=== PATIENT | male | born 1990 | race Caucasian/White ===

== ENCOUNTER 2017-05-12 22:03 | Emergency (ER) | payer OTHER ==
[2017-05-12 22:41] LABS: BASO % 0.2 % (0-6); EOS % 0.2 % (0-6); HEMATOCRIT 40.7 % (42.0-52.0); HEMOGLOBIN 13.9 gm/dl (14.0-18.0); LYMPH % 3.6 % (16-45); MEAN CELL VOLUME 92.7 fl (81-97); MEAN CORPUSCULAR HEMOGLOBIN 31.6 pg (27-33); MEAN CORPUSCULAR HGB CONC 34.2 g/dl (32-36); MEAN PLATELET VOLUME 10.3 fl (7.4-10.4); MONO % 5.9 % (0-9); PLATELET COUNT 186 K/uL (130-400); RED BLOOD COUNT 4.39 M/uL (4.40-5.70); RED CELL DISTRIBUTION WIDTH 12.8 % (11.5-14.5); WHITE BLOOD COUNT W/O DIFF 10.5 K/uL (4.2-12.2)
[2017-05-12] MEDS: KETOROLAC 30 MG/ML VIAL IVP ONE (22:45)
[2017-05-12] MEDS: 0.9 % SODIUM CHLORIDE 1,000 ML BAG IV ONE (22:48)
[2017-05-12 22:53] LABS: BLOOD UREA NITROGEN 17 mg/dL (6-20)
[2017-05-12 22:54] LABS: CREATININE 0.9 mg/dL (0.7-1.2); EST GLOMERULAR FILTRATION RATE > 60 mL/min
[2017-05-12 22:56] LABS: GLUCOSE,RANDOM 100 mg/dL (74-109)
[2017-05-12] MEDS: METHYLPREDNISOLONE PF 125MG/VIAL IVP ONE (23:59)
[2017-05-13] MEDS: IPRATROPIUM/ALBUTEROL (0.5MG/3MG) NEB INH ONE (00:21)
--- NOTE | 2017-05-13 00:36 | Emergency Department Record ---
History of Present Illness - General Chief Complaint: Difficulty Breathing Stated Complaint: LESLIE Time Seen by Provider: 05/12/17 22:24 Source: Patient Mode of Arrival: Ambulatory Limitations: No limitations - History of Present Illness Initial Comments: pt has a prod cough and feels like he is sob. he recently was on zithromax and levaquin for pneumonia MD Complaint: Cough, Shortness of breath Onset/Timin -: Hour(s) Severity: Moderate Consistency: Constant Improves With: Nothing Worsens With: Inspiration, Other Context: Recent illness, Recent URI Associated Symptoms: Chest pain, Cough, Pain with inspiration, Sputum production - Related Data Home Medications Medication Instructions Recorded Confirmed Last Taken Vitamin B Complex 1 each PO DAILY 05/12/17 05/12/17 Unknown Previous Rx's Medication Instructions Recorded Doxycycline Hyclate [Doxycycline] 100 mg PO BID #14 tab 05/13/17 Allergies Allergy/AdvReac Type Severity Reaction Status Date / Time Penicillins Allergy HIVES Verified 05/12/17 22:06 Travel Screening - Travel/Exposure Within Last 30 Days Have you traveled within the last 30 days?: No - Travel Symptoms Symptom Screening: Headache, Fatigue Review of Systems Reviewed: No additional complaints except as noted below Constitutional: Reports: As per HPI. Denies: Chills, Fever, Malaise, Night sweats, Weakness, Weight change Eyes: Reports: As per HPI. Denies: Eye discharge, Eye pain, Photophobia, Vision change ENT: Reports: As per HPI. Denies: Congestion, Dental pain, Ear pain, Epistaxis , Hearing loss, Throat pain Respiratory: Reports: As per HPI. Denies: Cough, Dyspnea, Hemoptysis, Stridor, Wheezes Cardiovascular: Reports: As per HPI. Denies: Arrhythmia, Chest pain, Dyspnea on exertion, Edema, Murmurs, Orthopnea, Palpitations, Paroxysmal nocturnal dyspnea, Rheumatic Fever, Syncope Endocrine: Reports: As per HPI. Denies: Fatigue, Heat or cold intolerance, Polydipsia, Polyuria Gastrointestinal: Reports: As per HPI. Denies: Abdominal pain, Constipation, Diarrhea, Hematemesis, Hematochezia, Melena, Nausea, Vomiting Genitourinary: Reports: As per HPI. Denies: Dysuria, Frequency, Hematuria, Incontinence, Retention, Testicular pain, Testicular mass, Urgency Musculoskeletal: Reports: As per HPI. Denies: Arthralgia, Back pain, Gout, Joint swelling, Myalgia, Neck pain Skin: Reports: As per HPI. Denies: Bruising, Change in color, Change in hair/ nails, Lesions, Pruritus, Rash Neurological: Reports: As per HPI. Denies: Abnormal gait, Confusion, Headache, Numbness, Paresthesias, Seizure, Tingling, Tremors, Vertigo, Weakness Psychiatric: Reports: As per HPI. Denies: Anxiety, Auditory hallucinations, Depression, Homicidal thoughts, Suicidal thoughts, Visual hallucinations Hematological/Lymphatic: Reports: As per HPI. Denies: Anemia, Blood Clots, Easy bleeding, Easy bruising, Swollen glands Past Medical History - SOCIAL HISTORY Smoking Status: Heavy tobacco smoker (>10/day) Alcohol Use: None Drug Use: Heavy Drug Use Detail:: Marijuana - RESPIRATORY Hx Respiratory Disorders: Yes Hx Pneumonia: Yes - CARDIOVASCULAR Hx Cardio Disorders: No - NEURO Hx Neuro Disorders: No - GI Hx GI Disorders: No - Hx Genitourinary Disorders: No - ENDOCRINE Hx Endocrine Disorders: No - MUSCULOSKELETAL Hx Musculoskeletal Disorders: No - PSYCH Hx Psych Problems: No - HEMATOLOGY/ONCOLOGY Hx Hematology/Oncology Disorders: No Family Medical History Any Significant Family History?: No Physical Exam - General General Appearance: Alert, Oriented x3, Cooperative, Mild distress - Head Head exam: Normal inspection - Eye Eye exam: Normal appearance, PERRL, EOMI Pupils: Normal accommodation - ENT ENT exam: Normal exam, Mucous membranes moist, Normal external ear exam, Normal orophraynx Ear exam: Normal external inspection. negative: External canal tenderness Nasal Exam: Normal inspection. negative: Discharge, Sinus tenderness Mouth exam: Normal external inspection, Tongue normal Teeth exam: Normal inspection. negative: Dental caries Throat exam: Normal inspection. negative: Tonsillar erythema, Tonsillar exudate - Neck Neck exam: Normal inspection, Full ROM. negative: Tenderness - Respiratory Respiratory exam: Normal lung sounds bilaterally. negative: Respiratory distress - Cardiovascular Cardiovascular Exam: Normal rhythm, Normal heart sounds, Tachycardia - GI/Abdominal GI/Abdominal exam: Soft, Normal bowel sounds. negative: Tenderness - Rectal Rectal exam: Deferred - exam: Deferred - Extremities Extremities exam: Normal inspection, Full ROM, Normal capillary refill. negative: Tenderness - Back Back exam: Reports: Normal inspection, Full ROM. Denies: Muscle spasm, Rash noted, Tenderness - Neurological Neurological exam: Alert, Normal gait, Oriented X3, Reflexes normal - Psychiatric Psychiatric exam: Normal affect, Normal mood - Skin Skin exam: Dry, Intact, Normal color, Warm Course Vital Signs 05/12/17 05/12/17 05/12/17 22:10 23:18 23:32 Temperature 100.9 F H 100.4 F H Pulse Rate [ 98 H Service Clerk ] Pulse Rate [ 101 H Pulse Ox Probe] Respiratory 20 Rate Blood Pressure 126/73 100/39 107/51 [Left Arm] Pulse Ox 98 96 05/13/17 00:17 Temperature 99.8 F H Pulse Rate [ Service Clerk ] Pulse Rate [ Pulse Ox Probe] Respiratory Rate Blood Pressure [Left Arm] Pulse Ox Medical Decision Making - Lab Data Result diagrams: 05/12/17 22:25 05/12/17 22:25 Lab Results 05/12/17 05/12/17 05/12/17 Range/Units 22:25 22:25 23:41 WBC 10.5 (4.2-12.2) K/uL RBC 4.39 L (4.40-5.70) M/uL Hgb 13.9 L (14.0-18.0) gm/dl Hct 40.7 L (42.0-52.0) % MCV 92.7 (81-97) fl MCH 31.6 (27-33) pg MCHC 34.2 (32-36) g/dl RDW 12.8 (11.5-14.5) % Plt Count 186 (130-400) K/uL MPV 10.3 (7.4-10.4) fl Neutrophils % 87.0 H (47-80) % Band Neutrophils % 3.0 (0-5) % Lymphocytes % 3.6 L (16-45) % Monocytes % 5.9 (0-9) % Eosinophils % 0.2 (0-6) % Basophils % 0.2 (0-6) % Lymphocytes 3.0 L (16-45) % Monocytes 7.0 (0-9) % Basophils 0.0 (0-6) % Eosinophil Count 0.0 (0-6) % D-Dimer (0-0.59) mg/L FEU Sodium 137 (136-145) mmol/L Potassium 3.7 (3.4-4.5) mmol/L Chloride 101 (98-107) mmol/L Carbon Dioxide 25.0 (22-29) mmol/L Anion Gap 11.0 (7-16) BUN 17 (6-20) mg/dL Creatinine 0.9 (0.7-1.2) mg/dL Estimated GFR > 60 mL/min Random Glucose 100 (74-109) mg/dL Calcium 9.4 (8.6-10.0) mg/dL Troponin T < 0.010 (0-0.010) ng/mL 05/12/17 Range/Units 23:46 WBC (4.2-12.2) K/uL RBC (4.40-5.70) M/uL Hgb (14.0-18.0) gm/dl Hct (42.0-52.0) % MCV (81-97) fl MCH (27-33) pg MCHC (32-36) g/dl RDW (11.5-14.5) % Plt Count (130-400) K/uL MPV (7.4-10.4) fl Neutrophils % (47-80) % Band Neutrophils % (0-5) % Lymphocytes % (16-45) % Monocytes % (0-9) % Eosinophils % (0-6) % Basophils % (0-6) % Lymphocytes (16-45) % Monocytes (0-9) % Basophils (0-6) % Eosinophil Count (0-6) % D-Dimer 0.21 (0-0.59) mg/L FEU Sodium (136-145) mmol/L Potassium (3.4-4.5) mmol/L Chloride (98-107) mmol/L Carbon Dioxide (22-29) mmol/L Anion Gap (7-16) BUN (6-20) mg/dL Creatinine (0.7-1.2) mg/dL Estimated GFR mL/min Random Glucose (74-109) mg/dL Calcium (8.6-10.0) mg/dL Troponin T (0-0.010) ng/mL Disposition Disposition: Discharge Clinical Impression: Bronchitis Disposition: Home, Self-Care Condition: (1) Good Instructions: Acute Bronchitis (ED) Additional Instructions: follow up with family doctor. return sooner if worse. tylenol and motrin as needed. push fluids Prescriptions: Doxycycline Hyclate [Doxycycline] 100 mg PO BID #14 tab Quality - Quality Measures Quality Measures: N/A - Blood Pressure Screening Does Patient Have Any of the Following: No Blood Pressure Classification: Normal BP Reading Systolic Measurement: 107 Diastolic Measurement: 51 Screening for High Blood Pressure: < Normal BP, F/U Not Required > [G8783]
[2017-05-13] MEDS: DOXYCYCLINE HYCLATE 100 MG CAPSULE PO ONE (00:39)
--- NOTE | 2017-05-13 14:47 | RADIOLOGY REPORT ---
EXAM: CHEST, TWO VIEWS HISTORY: COUGH, DIFFICULTY BREATHING. TECHNIQUE: PA and lateral views of the chest were obtained. Comparison: None. FINDINGS: The heart is not enlarged. The lungs appear somewhat hyperinflated suggesting underlying COPD. No definite acute infiltrate is seen. No pleural effusion or pneumothorax evident. Upper thoracic curve to the left. IMPRESSION: THE LUNGS APPEAR SOMEWHAT HYPERINFLATED SUGGESTING COPD. NO ACUTE INFILTRATE IDENTIFIED. JOB NUMBER: [id number] MTDD
== END 2017-05-13 00:44 | disposition home or self-care (01) ==
LOC: ER 22:03
DX: J20.9 Acute bronchitis, unspecified (principal); R06.02 Shortness of breath; R07.9 Chest pain, unspecified; R51 Headache; F17.210 Nicotine dependence, cigarettes, uncomplicated
CPT/HCPCS: 71046; 80048; 84484; 85027; 85379; 96374; 96375; 99284; J1885; J2930; J7030